=== PATIENT | female | born 1995 | race Asian ===

== ENCOUNTER 2024-07-06 05:14 | Inpatient (IN) | payer OTHER ==
[2024-07-06] VITALS (16 sets, daily range): BP systolic 120–151; BP diastolic 57–84; PULSE 75–97; TEMP 98–98.1
[~2024-07-06] VITALS: Ht 154.9 cm; Wt 96.4 kg
[~2024-07-06 05:14] MED LIST: LEVOXYL0.025 MG PO; PRENATAL TABLET PO
[2024-07-06] MEDS ORDERED: LR & Oxytocin 500 ML IV SCH (05:45)
[2024-07-06] MEDS ORDERED: LR 1,000 ML IV SCH (05:45)
[2024-07-06] MEDS ORDERED: Chloroprocaine PF 3% (30 MG/ML) 20 ML VIAL ONE (05:50)
[2024-07-06] MEDS ORDERED: ePHEDrine 50 MG/10 ML VIAL IV PRN (06:15)
[2024-07-06] MEDS ORDERED: diphenhydrAMINE 25 MG CAP PO PRN (06:15)
[2024-07-06] MEDS ORDERED: Ondansetron 4 MG/2 ML VIAL IV PRN (06:15)
[2024-07-06] MEDS ORDERED: diphenhydrAMINE 50 MG/ML 1 ML VIAL IV PRN (06:15)
[2024-07-06] MEDS ORDERED: Naloxone 0.4 MG/ML VIAL IV PRN ×2 (06:15→08:00)
[2024-07-06 06:32] LABS: BASO % 0.1 % (0.0-2.0); GRAN # 13.9 K/mm3 (1.4-6.5); GRAN % 87.2 % (42.2-75.2); HEMATOCRIT 37.5 % (37.0-47.0); LYMPH # 1.4 K/mm3 (1.2-3.4); LYMPH % 8.4 % (20.0-51.0); MEAN CELL VOLUME 95 fl (80.0-100.0); MEAN CORPUSCULAR HEMOGLOBIN 33 pg (27-31); MEAN CORPUSCULAR HGB CONC 35 g/dl (33.0-37.0); MEAN PLATELET VOLUME 11.4 fl (7.4-10.4); MONO # 0.6 K/mm3 (0.1-0.6); MONO % 3.7 % (1.7-9.3); PLATELET COUNT 218 K/mm3 (130-400); RED BLOOD COUNT 3.94 M/mm3 (4.10-5.30)
[2024-07-06] MEDS ORDERED: Magnes Hydrox (MOM) 80 MG/ML 30 ML CUP PO PRN (07:45)
[2024-07-06] MEDS ORDERED: Loratadine 10 MG TAB PO PRN (07:45)
[2024-07-06] MEDS ORDERED: Measles/Mumps/Rubella Virus Vaccine Live w Diluent 0.5 ML VIAL SQ SCH (08:00)
[2024-07-06] MEDS ORDERED: Sennosides/Docusate 8.6-50 MG TAB PO SCH (08:00)
[2024-07-06] MEDS ORDERED: Acetaminophen 500 MG TAB PO SCH (08:00)
[2024-07-06] MEDS ORDERED: Ibuprofen 600 MG TAB PO SCH (08:00)
[2024-07-06] MEDS ORDERED: Mag/Al Hydrox/Simeth Susp 30 ML CUP PO PRN (08:00)
[2024-07-06] MEDS ORDERED: oxyCODONE 5 MG TAB PO PRN (08:00)
[2024-07-06] MEDS ORDERED: Witch Hazel 50% Pads Bulk TUB TP PRN (08:00)
[2024-07-06] MEDS ORDERED: Phenylephrine/Mineral Oil/Petrolatum 57 GM TUBE RC PRN (08:00)
[2024-07-06] MEDS ORDERED: Prenatal Vitamins/Iron/FA TAB PO SCH (09:00)
[2024-07-06] MEDS ORDERED: Rho(D) Imm Globulin 1,500 UNITS (300 MCG)/2 ML SYRINGE IV\\IM SCH (13:00)
[2024-07-06] MEDS ORDERED: traZODone 50 MG TAB PO PRN (21:00)
[2024-07-07 07:35] VITALS: BP 123/60; PULSE 71; TEMP 97.9
[2024-07-07 15:28] VITALS: BP 129/84; PULSE 80; TEMP 98.1
[2024-07-07 20:48] VITALS: BP 138/89; PULSE 76; TEMP 98.2
[2024-07-08 07:00] VITALS: BP 137/98; PULSE 76; TEMP 98.2
[2024-07-08] MEDS ORDERED: IBU600 MG PO (09:50)
== END 2024-07-08 12:45 | disposition home or self-care (01) | DRG 805 ==
LOC: LDRO 05:14 → LDR 05:20 → OB 05:20
PROVIDERS: Obstetrics & Gynecology; ADMIT Obstetrics & Gynecology
PROC: 10D07Z6 Extraction of Products of Conception, Vacuum, Via Natural or Artificial Opening (ICD-10-PCS; principal; 2024-07-06)
PROC: 0KQM0ZZ Repair Perineum Muscle, Open Approach (ICD-10-PCS; 2024-07-06)
DX: O76 Abnormality in fetal heart rate and rhythm complicating labor and delivery (principal); O60.14X0 Preterm labor third trimester with preterm delivery third trimester, not applicable or unspecified; Z37.0 Single live birth; Z3A.36 36 weeks gestation of pregnancy; E03.9 Hypothyroidism, unspecified; O99.284 Endocrine, nutritional and metabolic diseases complicating childbirth; O70.1 Second degree perineal laceration during delivery
CPT/HCPCS: J0665; J2401; J2590; J2791; J7120